=== PATIENT | male | born 1975 | race Caucasian/White ===

== ENCOUNTER 2020-08-30 09:00 | Day surgery (SDC) | payer MEDICAID ==
[2020-08-27 11:13] LABS: CALC OSMOLALITY 249 mosm/kg (275-300); CALCIUM 8.7 mg/dL (8.5-10.1); CARBON DIOXIDE 38.2 mmol/L (21.0-32.0); CREATININE - SERUM 0.9 mg/dL (0.6-1.3); GLUCOSE 109 mg/dL (74-106); SODIUM 123 mmol/L (136-145); UREA NITROGEN 16 mg/dL (7-18); eGFR NON AFRICAN AMERICAN > 90 mL/min (90-120)
[2020-08-27 11:17] LABS: BASOPHILS 0.1 % (0-2); EOSINOPHILS 0.4 % (0-7); HEMATOCRIT 29.9 % (42.0-54.0); HEMOGLOBIN 10.2 g/dL (13.5-17.5); LYMPHOCYTE ABS# 0.83 10x3/uL (1.32-3.57); MCH 27.5 pg (26.0-34.0); MCHC 34.1 g/dL (31.0-37.0); MCV 80.6 fL (80.0-100.0); MEAN PLATELET VOLUME 8.2 fL (7.4-10.4); MONOCYTES 9.5 % (2-11); PLATELET COUNT 135 10x3/uL (130-400); RBC 3.71 10x6/uL (4.20-6.10); RDW 13.4 % (11.5-14.5); WBC 9.3 10x3/uL (4.8-10.8)
[2020-08-27 11:27] LABS: CHLORIDE - SERUM 84 mmol/L (98-107)
[~2020-08-30] VITALS: Ht 177.8 cm; Wt 58.1 kg
[~2020-08-30 09:00] MED LIST: ATIVAN1 MG PO; BUSPAR10 MG PO; DEPAKOTE ER500 MG PO; DEPAKOTE500 MG PO; DILANTIN100 MG PO; FUROSEMIDE40 MG PO; IBUPROFEN600 MG PO; KEPPRA500 MG PO; MOBIC7.5 MG PO; PAMELOR 25 MG C25 MG PO; TYLENOL W/CODEI1 TAB PO; VISTARIL50 MG PO; VOLTAREN100 GM TOPICAL; ZOLOFT100 MG PO; ZYRTEC10 MG PO; [UNRECOGNIZED DRUG - OTHER] PO
[2020-08-30 11:38] VITALS: BP 112/74; Ht 177.8 cm; Wt 58.1 kg
[2020-08-30 11:41] LABS: CALC OSMOLALITY 252 mosm/kg (275-300); CALCIUM 8.6 mg/dL (8.5-10.1); CHLORIDE - SERUM 90 mmol/L (98-107); CREATININE - SERUM 0.7 mg/dL (0.6-1.3); GLUCOSE 94 mg/dL (74-106); POTASSIUM - SERUM 3.2 mmol/L (3.5-5.1); SODIUM 126 mmol/L (136-145); UREA NITROGEN 13 mg/dL (7-18); eGFR NON AFRICAN AMERICAN > 90 mL/min (90-120)
--- NOTE | 2020-08-31 10:31 | OP ---
PATIENT NAME: KATHARINA WING MEDICAL RECORD: [id number] :73 LOCATION:[facility] ADMISSION DATE: SURGEON: VON SEARS DO DATE OF OPERATION: 08/30/2020 PROCEDURE PERFORMED: Left proximal humerus removal of hardware. PREOPERATIVE DIAGNOSIS: Painful hardware, left proximal humerus. POSTOPERATIVE DIAGNOSIS: Painful hardware, left proximal humerus. INDICATIONS: Mr. Wing is a 45-year-old male who had a left proximal humerus open reduction and internal fixation approximately 3 years ago he thinks and the hardware was bothering him and he said he is losing range of motion and he wanted it out. He is aware of the risks of this including infection, bleeding, damage to nerves and vessels, further fracture, need for further surgery, continued pain, arthrofibrosis of the shoulder, blood clots and even and he signed the consent. SURGEON: Von Sears DO. DESCRIPTION OF PROCEDURE: The patient received a block by anesthesia in preoperative area, taken to the operative suite, given 900 mg clindamycin, laid in the supine position, given general anesthetic and intubated. The patient was then placed in the beach chair position. The left shoulder was prepped and draped in sterile fashion. Timeout was performed and everyone was in agreement with correct side, site, patient and procedure. I then made an incision over the prior incision and made careful dissection down to the plate. We released the adhesions off of it and removed the screws and the plate. X-ray was then taken to ensure that all hardware was removed and indeed was. I then raised the arm up. He had good forward flex passively to 160 and abduct to 100 with full internal and external rotation. We then let it down. Irrigated and [place], certified indoor environmentalist, closed the site with 2-0 Vicryl in inverted interrupted fashion, 4-0 Monocryl on the skin and Prineo glue placed on the skin. He was awakened, put in a sling and taken to recovery in stable condition. BLOOD LOSS: Minimal. COMPLICATIONS: None. TRANSINT:[id number] Voice Confirmation ID: [id number] DOCUMENT ID: [id number] VON SEARS DO at 1031 CC: [id number] DICTATION DATE: 08/30/20 1311 COMPLIANCE EXAMINER: 08/31/20 0032 DEP SDC 08/30/20 [facility] [address] [place] [address]
== END 2020-08-30 15:05 | disposition home or self-care (01) ==
LOC: D.OPS 09:00
PROVIDERS: Anesthesiology; ATTEND Orthopaedic Surgery
DX: T84.84XA Pain due to internal orthopedic prosthetic devices, implants and grafts, initial encounter (principal); K21.9 Gastro-esophageal reflux disease without esophagitis; I10 Essential (primary) hypertension

== ENCOUNTER 2020-09-11 12:01 | Inpatient (IN) | payer MEDICAID ==
[2020-09-11] VITALS (10 sets, daily range): BP systolic 118–143; BP diastolic 64–86; BMI 18.4
[~2020-09-11] VITALS: Ht 177.8 cm; Wt 58.1 kg
[2020-09-11 13:03] LABS: CALC OSMOLALITY 251 mosm/kg (275-300); CALCIUM 8.8 mg/dL (8.5-10.1); CARBON DIOXIDE 34.5 mmol/L (21.0-32.0); CHLORIDE - SERUM 86 mmol/L (98-107); CREATININE - SERUM 0.9 mg/dL (0.6-1.3); GLUCOSE 96 mg/dL (74-106); SODIUM 124 mmol/L (136-145); UREA NITROGEN 19 mg/dL (7-18); eGFR NON AFRICAN AMERICAN > 90 mL/min (90-120)
[2020-09-11 13:06] LABS: POTASSIUM - SERUM 2.5 mmol/L (3.5-5.1)
[2020-09-11] MEDS ORDERED: TYLENOL W/CODEI1 TAB PO (13:09)
[2020-09-11] MEDS ORDERED: CARAFATE1 G PO (13:10)
[2020-09-11] MEDS ORDERED: PERCOCET 10-321 EAC1 PO (13:11)
[2020-09-11 13:13] LABS: BASOPHILS 0.4 % (0-2); EOSINOPHILS 3.9 % (0-7); HEMATOCRIT 23.3 % (42.0-54.0); IMMATURE GRANULOCYTES 0.2 % (0-5); LYMPHOCYTES 24.6 % (15-50); MCHC 32.2 g/dL (31.0-37.0); MCV 80.9 fL (80.0-100.0); MEAN PLATELET VOLUME 8.1 fL (7.4-10.4); MONOCYTES 12.7 % (2-11); NEUTROPHIL ABS# 2.84 10x3/uL (1.78-5.38); NEUTROPHILS 58.2 % (40-80); RBC 2.88 10x6/uL (4.20-6.10); RDW 13.5 % (11.5-14.5); WBC 4.9 10x3/uL (4.8-10.8)
--- NOTE | 2020-09-11 13:13 | NUR ---
PT STATES HE ATTEMPTED SUICIDE 3-5 YEARS AGO. HE SOUGHT TREATMENT AT THAT TIME AND STATES HE DOES NOT NEED FURTHER INTERVENTION AT THIS ITCO.
[2020-09-11 13:21] LABS: HEMOGLOBIN 7.5 g/dL (13.5-17.5); PLATELET COUNT 207 10x3/uL (130-400)
--- NOTE | 2020-09-11 16:14 | NUR ---
PT RECEIVED FROM RECOVERY VIA BED AWAKE ALERT AND ORIENTED TO PERSON, PLACE, TIME AND SITUATION. RESP EVEN AND UNLABORED. SHERLYN DRAIN NOTED TO LEFT UPPER SHOULDER WITH SCANT BLOODY DRAINAGE, WOUND VAC NOTED TO ANTERIOR SHOULDER INCISION, NO DRAINAGE NOTED AT THIS TIME. IV TO RIGHT HAND WITH NS @ 75ML/HR INFUSING VIA PUMP. SITE WITHOUT REDNESS OR EDEMA. PT DENIES PAIN AT THIS TIME. ORIENTED TO CL AND BED CONTROLS. DENIES FURTHER NEEDS AT THIS TIME. CL WITHIN REACH. ENCOURAGED TO CALL WITH NEEDS. CONTINUE POC
--- NOTE | 2020-09-11 19:50 | NUR ---
ASSESSMENT PER FLOW SHEET, VS CONTINUE FOR 1ST UNIT OF BLOOD, IV IN RIGHT HAND INTACT WITH NO REDNESS OR EDEMA, LEFT SHOULDER INC CDI, SHERLYN DRAIN COMPRESSED, PROVENIA WOUND VAC IN PLACE, PT USES URINAL WITH NO DIFFICULTY, EMPTIED PT 600 MLS OF CLEAR YELLOW URINE, PT REPORTS 1 VOID, C/O PAIN, ADM PAIN MED PER MD ORDERS, SEE EMAR, PT DENIES FLATUS, DENIES FURTHER NEEDS AT THIS TIME, PT REQUESTED AND SERVED COFFEE, FALL PRECAUTIONS IN PLACE
--- NOTE | 2020-09-11 21:05 | NUR ---
2ND UNIT OF BLOOD HUNG PER MD ORDERS, VERIFIED PER THIS RN AND ERLINDA LAUGHLIN, RN, VS CONTINUE
--- NOTE | 2020-09-11 21:20 | NUR ---
THIS RN CONTINUES AT BEDSIDE, VS WNL
--- NOTE | 2020-09-11 21:40 | NUR ---
VS CONTINUE, PT AMI BLOOD TRANSFUSION, REQUESTED AND SERVED COFFEE
--- NOTE | 2020-09-11 22:30 | NUR ---
PT SLUBBER OPERATOR LIGHT, REPORTS VOID, EMPTIED 450 MLS FROM URINAL, REQUESTED AND SERVED SANDWICH TRAY, BLOOD TRANSFUSION AND VS CONTINUE, PT AMI WELL, DENIES FURTHER NEEDS
[2020-09-12] VITALS (7 sets, daily range): BP systolic 108–139; BP diastolic 63–89
--- NOTE | 2020-09-12 00:08 | NUR ---
PT AWAKE, ADM PAIN MED AND TYLENOL PER MD ORDERS, SEE EMAR
--- NOTE | 2020-09-12 02:30 | NUR ---
PT WATCHING TV, EMPTIED URINAL, PT DENIES NEEDS
--- NOTE | 2020-09-12 04:11 | NUR ---
PT CROSSCUTTER ROLLED GLASS LIGHT, VS OBTAINED, ADM PAIN MED PER MD ORDERS, SEE EMAR, PT REQUESTED AND SERVED COFFEE, DENIES FURTHER NEEDS
--- NOTE | 2020-09-12 05:18 | NUR ---
PT MAP PLOTTER LIGHT, REQUESTED AND SERVED COFFEE, DENIES FURTHER NEEDS
--- NOTE | 2020-09-12 07:11 | OP ---
PATIENT NAME: KATHARINA WING MEDICAL RECORD: [id number] :73 LOCATION:D.M3 D.1213 ADMISSION DATE: SURGEON: VON SEARS DO DATE OF OPERATION: 09/11/2020 PROCEDURE PERFORMED: Left shoulder I&D with hematoma evacuation. PREOPERATIVE DIAGNOSIS: Postop hematoma of the left shoulder. POSTOPERATIVE DIAGNOSIS: Postop hematoma of the left shoulder. INDICATIONS: Mr. Wing is a 45-year-old male who had hardware removed about 10 days ago I believe from his left shoulder. He subsequently developed a hematoma in that left shoulder and presented to the clinic. I tried to aspirate it and nothing returned. I then discussed with him. It was quite a large hematoma and needs to I&D it for compromise the skin. He is okay with that. He is aware of the risks of this including infection, bleeding, damage to nerves or vessels, need for further surgery, continued pain, blood clots, loss of motion of the shoulder and even and he signed the consent. SURGEON: Von Sears DO. DESCRIPTION OF PROCEDURE: The patient received block by Anesthesia in the preoperative area and taken to the operative suite, laid in the supine position, given 1 gram Ancef, sedated and LMA was placed. The left shoulder was then prepped and draped in sterile fashion. Timeout was performed. Everyone was in agreement with the correct side, site, patient and procedure. I then began by making an incision over the old wound and opened it up. A large hematoma was removed and evacuated. I then used a curette and irrigation to debride the area. No obvious bleeders were seen. Once I irrigated with 3 liters, I put a drain in, 8-inch drain, and exited it posteriorly and then left in place. I then closed the skin with 2-0 Vicryl in an inverted interrupted fashion, 4-0 Monocryl in the skin and secured the drain with Tegaderms and then put a Prevena Plus on the wound at the surgical site. He was then awakened and taken to recovery in stable condition. BLOOD LOSS: Minimal. COMPLICATIONS: None. TRANSINT:[id number] Voice Confirmation ID: [id number] DOCUMENT ID: [id number] VON SEARS DO at 0711 CC: [id number] DICTATION DATE: 09/11/20 1541 [employer]CHO[employer] PRINCIPAL: 09/11/20 2313 [facility] [address] [id number]
--- NOTE | 2020-09-12 07:30 | NUR ---
AWAKE AND ALERT. ORIENTED X3. NO NEW C/O AT THIS TIME. LUNGS ARE CLEAR BILATERALLY, NO COUGH NOTED. REPORTS USING IS INSTRUCTED. SKIN IS INTACT WITHOUT REDNESS. PROVENA IN PLACE TO LEFT SHOULDER WITH SCANT DRAINAGE NOTED. IV TO RIGHT HAND IS PATENT WITHOUT REDNESS AT INSERTION SITE. REQUESTED ATIVAN AT THIS TIME. DISCUSSED THIS IS A SCHEDULED MED. ALL QUESTIONS ANSWERED.
[2020-09-12] MEDS ORDERED: PERCOCET 10-321 EAC1 PO (07:43)
[2020-09-12 08:01] LABS: BASOPHILS 0.4 % (0-2); HEMOGLOBIN 8.9 g/dL (13.5-17.5); IMMATURE GRANULOCYTES 0.2 % (0-5); LYMPHOCYTE ABS# 1.76 10x3/uL (1.32-3.57); LYMPHOCYTES 39.5 % (15-50); MCH 27.2 pg (26.0-34.0); MCV 82.6 fL (80.0-100.0); MEAN PLATELET VOLUME 8.2 fL (7.4-10.4); MONOCYTES 13.5 % (2-11); NEUTROPHIL ABS# 1.98 10x3/uL (1.78-5.38); NEUTROPHILS 44.4 % (40-80); RBC 3.27 10x6/uL (4.20-6.10); RDW 13.3 % (11.5-14.5); WBC 4.5 10x3/uL (4.8-10.8)
[2020-09-12 08:15] LABS: PLATELET COUNT 156 10x3/uL (130-400)
[2020-09-12 08:47] LABS: ALBUMIN 2.9 g/dL (3.4-5.0); ALKALINE PHOSPHATASE 84 U/L (30-120); ALT (SGPT) 8 U/L (10-68); BILIRUBIN - TOTAL 0.32 mg/dL (0.2-1.3); CALC OSMOLALITY 249 mosm/kg (275-300); CALCIUM 7.8 mg/dL (8.5-10.1); CARBON DIOXIDE 30.8 mmol/L (21.0-32.0); CHLORIDE - SERUM 87 mmol/L (98-107); CREATININE - SERUM 0.8 mg/dL (0.6-1.3); GLUCOSE 86 mg/dL (74-106); MAGNESIUM - SERUM 1.9 mg/dL (1.8-2.4); PHENYTOIN (DILANTIN) 4.2 ug/mL (10.0-20.0); PHOSPHOROUS 2.9 mg/dL (2.5-4.9); PROTEIN - SERUM 5.6 g/dL (6.4-8.2); SODIUM 125 mmol/L (136-145); UREA NITROGEN 11 mg/dL (7-18); VALPROIC ACID (DEPAKOTE) 29.4 ug/mL (50.0-100.0); eGFR NON AFRICAN AMERICAN > 90 mL/min (90-120)
[2020-09-12 08:48] LABS: POTASSIUM - SERUM 2.9 mmol/L (3.5-5.1)
--- NOTE | 2020-09-12 08:53 | NUR ---
REQUESTED AND GIVEN ONE PERCOCET PO FOR C/O LEFT SHOULDER PAIN LEVEL 9. WILL MONITOR.
--- NOTE | 2020-09-12 09:30 | NUR ---
ATE ONLY ABOUT HALF OF BREAKFAST TRAY. TO MANY INTERUPTIONS TO FINISH. DENIES NEEDS.
[2020-09-12 11:16] LABS: INR 1.06 (0.85-1.17); PROTIME 12.8 SECONDS (11.6-15.0)
--- NOTE | 2020-09-12 12:30 | NUR ---
LUNCH SERVED IN ROOM. FEEDS SELF WITHOUT HELP. WANTS TO WAIT FOR AWHILE AND TAKE A NAP. WILL MONITOR. VOIDED CLEAR YELLOW URINE INTO URINAL.
--- NOTE | 2020-09-12 12:51 | NUR ---
REQUESTED AND GIVEN ONE PERCOCET PO FOR C/O LEFT SHOULDER PAIN LEVEL 8. WILL MONITOR.
--- NOTE | 2020-09-12 14:00 | NUR ---
RESTING QUIETLY WITH EYES CLOSED. NO NEEDS NOTED.
--- NOTE | 2020-09-12 16:53 | NUR ---
REQUESTED AND GIVEN ONE PERCOCET PO FOR C/O LEFT SHOULDER PAIN LEVEL 7. WILL MONITOR.
--- NOTE | 2020-09-12 18:49 | NUR ---
ATE LUNCH TRAY FOR SUPPER. HELD ONTO DINNER TRAY FOR A BIT. DENIES NEEDS. NO CHANGES NOTED.
--- NOTE | 2020-09-12 19:00 | NUR ---
BEDSIDE REPORT GIVEN BY SASHA HUBBARD
--- NOTE | 2020-09-12 22:00 | NUR ---
PT ASSESSMENT COMPLETED. PT ASKS FOR PAIN MEDS EVERY TIME I WALK IN HIS ROOM. HE ALWAYS HAS AN ANGLE THAT HE THINKS HE CAN HAVE SOMETHING. HE HAS BEEN ASKING FOR A SANDWICH SINCE HE FINISHED HIS DINNER PROVIDED BY THE HOSPITAL. HE HAS ONLY HAD ONE CUP OF COFFEE TONIGHT TRYING TO HELP HIM SLEEP. HE HAS A WOUND VAC ATTACHED TO HIS LEFT SHOULDER. HE HAS AN IV IN HIS RIGHT HAND WITH NS RUNNING AT 75 MLS/HR. PT TAKES HIS MEDS WELL. PT STATES THE HE WILL NOT HAVE A SEIZURE UNLESS HE DOESN'T TAKE HIS MEDS.
[2020-09-13 04:00] VITALS: BP 115/72
[2020-09-13 05:51] LABS: BASOPHILS 0.5 % (0-2); HEMATOCRIT 28.4 % (42.0-54.0); HEMOGLOBIN 9.3 g/dL (13.5-17.5); IMMATURE GRANULOCYTES 0.2 % (0-5); LYMPHOCYTE ABS# 1.62 10x3/uL (1.32-3.57); LYMPHOCYTES 37.7 % (15-50); MCH 27.6 pg (26.0-34.0); MCHC 32.7 g/dL (31.0-37.0); MCV 84.3 fL (80.0-100.0); MEAN PLATELET VOLUME 8.5 fL (7.4-10.4); MONOCYTES 9.3 % (2-11); NEUTROPHIL ABS# 2.08 10x3/uL (1.78-5.38); NEUTROPHILS 48.3 % (40-80); PLATELET COUNT 180 10x3/uL (130-400); RBC 3.37 10x6/uL (4.20-6.10); RDW 13.4 % (11.5-14.5); WBC 4.3 10x3/uL (4.8-10.8)
[2020-09-13 06:15] LABS: ALKALINE PHOSPHATASE 85 U/L (30-120); ALT (SGPT) 8 U/L (10-68); BILIRUBIN - TOTAL 0.25 mg/dL (0.2-1.3); CALC OSMOLALITY 259 mosm/kg (275-300); CALCIUM 8.1 mg/dL (8.5-10.1); CARBON DIOXIDE 28.8 mmol/L (21.0-32.0); CHLORIDE - SERUM 93 mmol/L (98-107); CREATININE - SERUM 0.9 mg/dL (0.6-1.3); GLUCOSE 114 mg/dL (74-106); MAGNESIUM - SERUM 1.9 mg/dL (1.8-2.4); PROTEIN - SERUM 5.8 g/dL (6.4-8.2); SODIUM 130 mmol/L (136-145); eGFR NON AFRICAN AMERICAN > 90 mL/min (90-120)
[2020-09-13 06:18] LABS: UREA NITROGEN 7 mg/dL (7-18)
[2020-09-13] MEDS ORDERED: KLOR-CON/EF 2525 MEQ PO (07:03)
--- NOTE | 2020-09-13 07:30 | NUR ---
AWAKE AND ALERT. ORIENTED X3. NO C/O AT THIS TIME. LUNGS ARE CLEAR BILATERALLY, NO COUGH NOTED. REPORTED USED IS INSTRUCTED. SKIN IS INTACT WITHOUT REDNESS EXCEPT WOUND VAC TO LEFT SHOULDER WITH SCANT OUTPUT. IV TO RIGHT WRIST IS PATENT WITHOUT REDNESS AT INSERTION SITE. VOIDED 400cc CLEAR YELLOW URINE IN URINAL. DENIES NEEDS.
--- NOTE | 2020-09-13 08:00 | NUR ---
REQUESTED AND GIVEN ONE TYLENOL PO FOR C/O HEADACHE LEVEL 7. WILL MONITOR. BREAKFAST SERVED IN ROOM. WANTS TO EAT LATER.
[2020-09-13 08:05] VITALS: BP 119/78
[2020-09-13 10:48] VITALS: Ht 177.8 cm; Wt 58.1 kg
[2020-09-13 11:37] VITALS: BP 131/84
--- NOTE | 2020-09-13 14:21 | NUR ---
DISCHARGED TO HOME AMBULATORY WITH SHELTER. DISCHARGE INSTRUCTIONS GIVEN BOTH VERBALLY AND WRITTEN. ALL QUESTIONS ANSWERED. PATIENT VERBALIZED UNDERSTANDING OF SAME. PROVEENA PLACED PER ORDERS. SL TO RIGHT HAND D/C AND IV TO RIGHT FOREARM D/C WITH CATHETER INTACT. REQUESTED AND GIVEN ONE PERCOCET PO FOR C/O LEFT SHOULDER PAIN LEVEL 10 AFTER ALL THE ACTIVITY OF DRESSING. NEEDED PRESCRIPTIONS GIVEN TO PATIENT. ALL BELONGINGS WITH PATIENT.
--- NOTE | 2020-09-13 15:21 | MORECARE ---
CASE MANAGEMENT DISCHARGE SUMMARY PATIENT: KATHARINA WING UNIT: [id number] ADM DATE: 09/12/20 AGE: 45 : 73 SEX: M ROOM/BED: D.1213 AUTHOR: REN SYED PHYSICIAN: REFERRING PHYSICIAN: JOYCE SEARS DO DATE OF SERVICE: 09/13/20 Case Management Discharge Planning Summary CT Patient Name: KATHARINA WING Attending MD : JOYCE PAREDES Medical Record: [id number] Encounter : [id number] Facility : [address] [place] [address] Medical Admission Date : 115:24 Center Discharge Date : 09/13/[address] [place] [address] Date of : DC Plan ID : [id number] Age/Sex/Martia : 45/ M/S Printed on : 09/13/20 15:20 CT DCP Review Details Anticipated D/C: 09/13/2020 Expected LOS : 1 Case Status : INITIATED - Initial Reviewe: [id number] - Leonardo Garber Initial Review: 09/12/2020 Planned Disposi: 01 - Home or Self Care (Routine Discharge) Final Discharge: - Final Reviewer : : Final Review : Comments CT Entered Date Type Reviewer 09/13/20 14:21 CT Discharge Planning Leonardo Garber Comment HOME NO NEEDS. CM met with patient to complete DC plan and to evaluate needs. Patient Lives at [facility] with 4 other men. At discharge, the patient plans to return to [facility] [facility] and feels this is a safe discharge. Patient stated that his PCP is Dr Td Parrish and he fills his medications without problems at [facility]. CM discussed availability of home health, rehab services, and medical equipment. Patient declined HHS, SNF, IPR, and DME. Patient will DC with a provena to his LUE and will follow up with surgeon when he calls Wednesday for appointment. Patient voiced no other needs at this time and is satisfied with DC plan. Transportation provider at discharge will be with [facility]. CM will continue to follow and will assist as needed with dc plans/needs. DCP Focus Questions & Answers DCP Evaluation Patient's ability to cope with chronic illness d. No chronic illness Patient gives permission to discuss discharge [facility] plans with: (name, relationship and number) Coordinator, Patient and/or caregiver agree upon recommended Yes discharge plan? Patient's current cognitive status: *Oriented to person, place, situation, time and present Physical Status: Independent with ADL's Does the patient have the ability to pay for or Yes attain post discharge needs / services? Functional screen assessment: No issues identified Living Arrangements: Other Equipment needed for post hospitalization: None Is there a likelihood that the patient will No require additional services to return to the preadmission environment? Living arrangements comments: Psych Independent Living Baseline cognitive status: *Oriented to person, place, situation, time and present Patient with capacity for self-care or can be Yes cared for in same environment as prior to hospitalization? Facility / Agency name and contact information [facility] from Question 3 (if applicable): Physical environment modification needed / No anticipated for discharge: Medication Management: Patient states can read and understand medication labels Medication Management: Patient states can afford medications Pharmacy name(s): [facility] Does Patient have transportation to get home and Yes to follow-up medical appointments when discharged from the hospital? Would patient like to participate in any Care Not applicable Coordination programs (if applicable): Does the patient have electricity at home? Yes Does the patient have running water in their Yes house? Equipment in use: None Mental health screen: No mental health history DCP Re-evaluation Would patient like to participate in any Care Not applicable Coordination programs (if applicable): [facility] KATHARINA WING MR#: [id number] /Age/Sex/Lrdcoq13-Dkt-38 /45/M /S Attending Physician Name: FARIDA SEARS [id number] Patient Account:[id number] [facility] Page -1 of 1 All edits/amendments must be made on the electronic document DICTATION DATE: 09/13/20 1520 FAMILY CONSULTANT: JERRICA 09/13/20 1520 RPT#: [id number] DC DATE:09/13/20 STATUS: DIS IN [facility] [address] [place] [address] END OF REPORT
--- NOTE | 2020-09-14 18:19 | MORECARE ---
CASE MANAGEMENT DISCHARGE SUMMARY PATIENT: KATHARINA WING UNIT: [id number] ADM DATE: 09/12/20 AGE: 45 : 73 SEX: M ROOM/BED: D.1213 AUTHOR: REN SYED PHYSICIAN: REFERRING PHYSICIAN: JOYCE SEARS DO DATE OF SERVICE: 09/14/20 Case Management Discharge Planning Summary CT Patient Name: KATHARINA WING Attending MD : JOYCE PAREDES Medical Record: [id number] Encounter : [id number] Facility : [address] [place] [address] Medical Admission Date : 115:24 Center Discharge Date : 09/13/[address] [place] [address] Date of : DC Plan ID : [id number] Age/Sex/Martia : 45/ M/S Printed on : 09/14/20 18:18 CT DCP Review Details Anticipated D/C: 09/13/2020 Expected LOS : 1 Case Status : INITIATED - Initial Reviewe: [id number] - Leonardo Garber Initial Review: 09/12/2020 Planned Disposi: 01 - Home or Self Care (Routine Discharge) Final Discharge: - Final Reviewer : : Final Review : Comments CT Entered Date Type Reviewer 09/13/20 14:21 CT Discharge Planning Leonardo Garber Comment HOME NO NEEDS. CM met with patient to complete DC plan and to evaluate needs. Patient Lives at [facility] with 4 other men. At discharge, the patient plans to return to [facility] [facility] and feels this is a safe discharge. Patient stated that his PCP is Dr Td Parrish and he fills his medications without problems at [facility]. CM discussed availability of home health, rehab services, and medical equipment. Patient declined HHS, SNF, IPR, and DME. Patient will DC with a provena to his LUE and will follow up with surgeon when he calls Wednesday for appointment. Patient voiced no other needs at this time and is satisfied with DC plan. Transportation provider at discharge will be with [facility]. CM will continue to follow and will assist as needed with dc plans/needs. DCP Focus Questions & Answers DCP Evaluation Patient's ability to cope with chronic illness d. No chronic illness Patient gives permission to discuss discharge [facility] plans with: (name, relationship and number) Coordinator, Patient and/or caregiver agree upon recommended Yes discharge plan? Patient's current cognitive status: *Oriented to person, place, situation, time and present Physical Status: Independent with ADL's Does the patient have the ability to pay for or Yes attain post discharge needs / services? Functional screen assessment: No issues identified Living Arrangements: Other Equipment needed for post hospitalization: None Is there a likelihood that the patient will No require additional services to return to the preadmission environment? Living arrangements comments: Psych Independent Living Baseline cognitive status: *Oriented to person, place, situation, time and present Patient with capacity for self-care or can be Yes cared for in same environment as prior to hospitalization? Facility / Agency name and contact information [facility] from Question 3 (if applicable): Physical environment modification needed / No anticipated for discharge: Medication Management: Patient states can read and understand medication labels Medication Management: Patient states can afford medications Pharmacy name(s): [facility] Does Patient have transportation to get home and Yes to follow-up medical appointments when discharged from the hospital? Would patient like to participate in any Care Not applicable Coordination programs (if applicable): Does the patient have electricity at home? Yes Does the patient have running water in their Yes house? Equipment in use: None Mental health screen: No mental health history DCP Re-evaluation Would patient like to participate in any Care Not applicable Coordination programs (if applicable): [facility] KATHARINA WING MR#: [id number] /Age/Sex/Lflmvm91-Xad-53 /45/M /S Attending Physician Name: FARIDA SEARS [id number] Patient Account:[id number] [facility] Page -1 of 1 All edits/amendments must be made on the electronic document DICTATION DATE: 09/14/201817 CHICKEN CLEANER: JERRICA 09/14/201817 RPT#: [id number] DC DATE:09/13/20 STATUS: DIS IN [facility] [address] [place] [address] END OF REPORT
== END 2020-09-13 14:25 | disposition home or self-care (01) | DRG 920 ==
LOC: D.M3 12:01 → D.OPS 12:01 → D.M3 15:18 → D.OPS 09-12 15:24 → D.M3 09-12 15:24
PROVIDERS: Anesthesiology; Emergency Medicine; ADMIT Orthopaedic Surgery; ATTEND Orthopaedic Surgery
PROC: 0JCF0ZZ Extirpation of Matter from Left Upper Arm Subcutaneous Tissue and Fascia, Open Approach (ICD-10-PCS; principal; 2020-09-11 14:00)
DX: L76.32 Postprocedural hematoma of skin and subcutaneous tissue following other procedure (principal); D62 Acute posthemorrhagic anemia; E87.1 Hypo-osmolality and hyponatremia; Y83.9 Surgical procedure, unspecified as the cause of abnormal reaction of the patient, or of later complication, without mention of misadventure at the time of the procedure; I10 Essential (primary) hypertension; G40.909 Epilepsy, unspecified, not intractable, without status epilepticus; K74.60 Unspecified cirrhosis of liver; E87.6 Hypokalemia

== ENCOUNTER 2020-10-18 21:37 | Emergency (ER) | payer MEDICAID ==
[~2020-10-18] VITALS: Ht 177.8 cm; Wt 68.2 kg
[~2020-10-18 21:37] MED LIST changes: +CARAFATE1 G PO; +KLOR-CON/EF 2525 MEQ PO; +PERCOCET 10-321 EAC1 PO
[2020-10-18 21:43] VITALS: Ht 177.8 cm; Wt 68.2 kg
[2020-10-18 22:26] LABS: BASOPHILS 0.4 % (0-2); EOSINOPHILS 1.5 % (0-7); HEMATOCRIT 30.2 % (42.0-54.0); HEMOGLOBIN 9.5 g/dL (13.5-17.5); LYMPHOCYTE ABS# 1.79 10x3/uL (1.32-3.57); LYMPHOCYTES 32.5 % (15-50); MCH 26.8 pg (26.0-34.0); MCHC 31.5 g/dL (31.0-37.0); MCV 85.3 fL (80.0-100.0); MEAN PLATELET VOLUME 8.6 fL (7.4-10.4); MONOCYTES 12.9 % (2-11); NEUTROPHILS 52.7 % (40-80); RBC 3.54 10x6/uL (4.20-6.10); RDW 14.8 % (11.5-14.5); WBC 5.5 10x3/uL (4.8-10.8)
[2020-10-18 22:31] LABS: PLATELET COUNT 132 10x3/uL (130-400)
[2020-10-18] MEDS ORDERED: IBUPROFEN600 MG PO (22:32)
[2020-10-18] MEDS ORDERED: TRAZODONE HCL50 MG PO (22:33)
[2020-10-18] MEDS ORDERED: TRAMADOL HCL E100 M1 PO (22:33)
[2020-10-18 22:47] LABS: CALC OSMOLALITY 267 mosm/kg (275-300); CALCIUM 8.1 mg/dL (8.5-10.1); CARBON DIOXIDE 28.5 mmol/L (21.0-32.0); CHLORIDE - SERUM 98 mmol/L (98-107); CREATININE - SERUM 0.9 mg/dL (0.6-1.3); GLUCOSE 83 mg/dL (74-106); POTASSIUM - SERUM 3.8 mmol/L (3.5-5.1); SODIUM 134 mmol/L (136-145); UREA NITROGEN 16 mg/dL (7-18); eGFR NON AFRICAN AMERICAN > 90 mL/min (90-120)
[2020-10-18 23:01] LABS: ALBUMIN 3.4 g/dL (3.4-5.0); ALKALINE PHOSPHATASE 74 U/L (30-120); ALT (SGPT) 29 U/L (10-68); BILIRUBIN - TOTAL 0.15 mg/dL (0.2-1.3); PROTEIN - SERUM 6.5 g/dL (6.4-8.2); THYROID STIMULATING HORMONE 1.64 uIU/mL (0.36-3.74)
[2020-10-18 23:07] LABS: SARS-CoV-2 ANTIGEN NEGATIVE- SARS-COV-2 (NEGATIVE)
--- NOTE | 2020-10-18 23:14 | NUR ---
DR. ALDANA NOTIFIED AND REVIEWED PT'S BEHAVIOR AND ASSESSMENT RESULTS. PT IS A LOW RISK PER DR. ALDANA. DR. ALDANA STATED TO GIVE RESOURCES TO PT AT TIME OF DISCHARGE. NO FURTHER ORDERS AT THIS TIME. RESOURCES REVIEWED WITH PT AND HE VERBALIZED UNDERSTANDING.
[2020-10-18 23:31] LABS: BILIRUBIN NEGATIVE (NEGATIVE); KETONE NEGATIVE (NEGATIVE); NITRITE NEGATIVE (NEGATIVE); UROBILINOGEN NORMAL mg/dL (< 2)
[2020-10-18 23:40] LABS: UDS - AMPHET NEGATIVE QUAL (NEGATIVE); UDS - BARB NEGATIVE QUAL (NEGATIVE); UDS - BENZO NEGATIVE QUAL (NEGATIVE); UDS - COCAINE NEGATIVE QUAL (NEGATIVE); UDS - OPIATE NEGATIVE QUAL (NEGATIVE); UDS - PCP NEGATIVE QUAL (NEGATIVE); UDS - THC NEGATIVE QUAL (NEGATIVE)
[2020-10-19 10:20] VITALS: BP 136/87
== END 2020-10-19 10:37 ==
LOC: D.ER 21:37
PROVIDERS: Student in an Organized Health Care Education/Training Program
DX: R45.851 Suicidal ideations (principal); I10 Essential (primary) hypertension; K21.9 Gastro-esophageal reflux disease without esophagitis; Z72.0 Tobacco use; F41.9 Anxiety disorder, unspecified

== ENCOUNTER 2020-11-01 00:07 | Emergency (ER) | payer MEDICAID ==
[~2020-11-01] VITALS: Ht 177.8 cm; Wt 53.2 kg
[~2020-11-01 00:07] MED LIST changes: +TRAMADOL HCL E100 M1 PO; +TRAZODONE HCL50 MG PO
[2020-11-01 00:09] VITALS: BP 154/89; Ht 177.8 cm; Wt 53.2 kg
[2020-11-01 00:34] LABS: BILIRUBIN NEGATIVE (NEGATIVE); KETONE NEGATIVE (NEGATIVE); NITRITE NEGATIVE (NEGATIVE); UROBILINOGEN NORMAL mg/dL (< 2)
[2020-11-01 00:49] LABS: BASOPHILS 0.6 % (0-2); EOSINOPHILS 1.5 % (0-7); HEMATOCRIT 29.6 % (42.0-54.0); HEMOGLOBIN 9.9 g/dL (13.5-17.5); LYMPHOCYTES 27.1 % (15-50); MCH 27.3 pg (26.0-34.0); MCHC 33.3 g/dL (31.0-37.0); MCV 81.8 fL (80.0-100.0); MEAN PLATELET VOLUME 6.3 fL (7.4-10.4); MONOCYTES 7.8 % (2-11); PLATELET COUNT 160 10x3/uL (130-400); RBC 3.61 10x6/uL (4.20-6.10); RDW 15.3 % (11.5-14.5); WBC 5.9 10x3/uL (4.8-10.8)
[2020-11-01 00:53] LABS: UDS - AMPHET NEGATIVE QUAL (NEGATIVE); UDS - BARB NEGATIVE QUAL (NEGATIVE); UDS - BENZO NEGATIVE QUAL (NEGATIVE); UDS - COCAINE NEGATIVE QUAL (NEGATIVE); UDS - OPIATE NEGATIVE QUAL (NEGATIVE); UDS - PCP NEGATIVE QUAL (NEGATIVE); UDS - THC NEGATIVE QUAL (NEGATIVE)
[2020-11-01 00:56] LABS: CALC OSMOLALITY 265 mosm/kg (275-300); CALCIUM 8.4 mg/dL (8.5-10.1); CARBON DIOXIDE 29.4 mmol/L (21.0-32.0); CHLORIDE - SERUM 96 mmol/L (98-107); CREATININE - SERUM 0.6 mg/dL (0.6-1.3); GLUCOSE 96 mg/dL (74-106); POTASSIUM - SERUM 3.7 mmol/L (3.5-5.1); SODIUM 133 mmol/L (136-145); UREA NITROGEN 13 mg/dL (7-18); eGFR NON AFRICAN AMERICAN > 90 mL/min (90-120)
[2020-11-01 01:02] LABS: ALBUMIN 3.6 g/dL (3.4-5.0); ALKALINE PHOSPHATASE 86 U/L (30-120); ALT (SGPT) 56 U/L (10-68); BILIRUBIN - TOTAL 0.13 mg/dL (0.2-1.3); MAGNESIUM - SERUM 2.1 mg/dL (1.8-2.4); PROTEIN - SERUM 6.7 g/dL (6.4-8.2)
[2020-11-01 01:11] LABS: SARS-CoV-2 ANTIGEN NEGATIVE- SARS-COV-2 (NEGATIVE)
--- NOTE | 2020-11-01 02:13 | NUR ---
DR ALDANA NOTIFIED AND SITTER ORDERED. SITTER AT BEDSIDE. NOTIFIED CHARGE NURSE AND ATTENDING IN REGARDS TO ASSESSMENT FINDINGS. RESOURCES GIVEN TO PT AND SAFETY PLAN INITIATED.
== END 2020-11-01 05:00 ==
LOC: D.ER 00:07
PROVIDERS: Student in an Organized Health Care Education/Training Program
DX: R45.851 Suicidal ideations (principal); F41.9 Anxiety disorder, unspecified; I10 Essential (primary) hypertension; K21.9 Gastro-esophageal reflux disease without esophagitis; Z72.0 Tobacco use